=== PATIENT | female | born 1995 | race Caucasian/White ===

== ENCOUNTER 2019-01-29 20:09 | Emergency (ER) | payer OTHER ==
[~2019-01-29] VITALS: Ht 160 cm; Wt 59.0 kg
== END 2019-01-29 23:58 | disposition home or self-care (01) ==
LOC: ER 20:09
DX: R45.4 Irritability and anger (principal); F17.210 Nicotine dependence, cigarettes, uncomplicated
CPT/HCPCS: 87430; 99283

== ENCOUNTER 2019-02-13 00:48 | Emergency (ER) | payer OTHER ==
[~2019-02-13] VITALS: Ht 162.6 cm; Wt 54.4 kg
[2019-02-13] MEDS ORDERED: Amoxicillin500 MG PO (01:36)
== END 2019-02-13 03:13 | disposition home or self-care (01) ==
LOC: ER 00:48
DX: Z00.8 Encounter for other general examination (principal); Z88.2 Allergy status to sulfonamides; F31.9 Bipolar disorder, unspecified; F41.9 Anxiety disorder, unspecified; F17.210 Nicotine dependence, cigarettes, uncomplicated; Z79.899 Other long term (current) drug therapy
CPT/HCPCS: 99283